=== PATIENT | male | born 1935 | race Caucasian/White ===

== ENCOUNTER 2022-03-31 15:43 | Emergency (ER) | payer MEDICARE ==
[~2022-03-31] VITALS: Ht 180.3 cm; Wt 81.0 kg
[2022-03-31 17:08] LABS: HEMATOCRIT 36.9 % (39.0-50.0); HEMOGLOBIN 11.5 g/dl (14.0-18.0); IMMATURE GRANULOCYTES 0.2 % (0.0-5.0); MEAN CELL VOLUME 88.1 fL CALC (80.0-100.0); MEAN CORPUSCULAR HGB 27.4 pG CALC (26.0-32.0); MEAN CORPUSCULAR HGB CONC 31.2 g/dL CAL (32.0-36.0); NEUT# 3.58 thou/uL (1.82-7.42); RED BLOOD COUNT 4.19 mill/uL (4.70-6.10)
[2022-03-31 17:09] LABS: URINE BLOOD DIPSTICK LARGE (NEGATIVE); URINE COLOR BROWN; URINE GLUCOSE - DIPSTICK NEGATIVE (NEGATIVE); URINE KETONE NEGATIVE (NEGATIVE); URINE PROTEIN - DIPSTICK 30 mg/dL (NEG-TRACE); URINE SPECIFIC GRAVITY 1.025
[2022-03-31 17:12] LABS: URINE BILIRUBIN - DIPSTICK SMALL (NEGATIVE)
[2022-03-31 17:13] LABS: URINE LEUK ESTERASE SMALL (NEGATIVE); URINE NITRITE - DIPSTICK NEGATIVE (Negative)
[2022-03-31 17:26] LABS: INTERNATIONAL NORMALIZED RATIO 1.2 RATIO (0.7-1.3); PROTHROMBIN TIME 12.1 SECONDS (9.0-12.5)
[2022-03-31 17:36] LABS: URINE RBC >100 RBC/hpf (0-5)
[2022-03-31 17:38] LABS: ALBUMIN 3.7 g/dL (3.2-5.0); ALKALINE PHOSPHATASE 83 u/l (38-126); ANION GAP 16 (6-22 (CALC)); BILIRUBIN, TOTAL 0.5 mg/dL (0.0-1.4); BUN 16 mg/dL (8-23); BUN/CREATININE RATIO 18 (12-20 (CALC)); CARBON DIOXIDE 26 mmol/l (22-30); CHLORIDE 96 mmol/l (95-108); CREATININE 0.9 mg/dL (0.7-1.3); GFR FOR AFR.AMER. > 60 ML/MIN (>=60 (CALC)); GFR OTHER RACES > 60 ML/MIN (>=60 (CALC)); POTASSIUM 4.3 mmol/l (3.5-5.1); SGOT/AST 33 u/l (19-48); SODIUM 133 mmol/l (137-146); TOTAL PROTEIN 6.1 g/dL (6.3-8.2)
[2022-03-31] MEDS ORDERED: KEFLEX500 MG PO (17:48)
[2022-03-31] MEDS ORDERED: ENTRESTO 24-261 TAB PO (18:00)
[2022-03-31 18:18] VITALS: BP 132/67
== END 2022-03-31 18:19 | disposition home or self-care (01) ==
LOC: ED 15:43
PROVIDERS: Nurse Practitioner
DX: N39.0 Urinary tract infection, site not specified (principal); E11.9 Type 2 diabetes mellitus without complications; J43.9 Emphysema, unspecified; B95.2 Enterococcus as the cause of diseases classified elsewhere; Z96.0 Presence of urogenital implants